=== PATIENT | female | born 2005 | race Caucasian/White ===

== ENCOUNTER 2023-12-30 17:38 | Emergency (ER) | payer BC, SELFPAY ==
--- NOTE | ~2023-12-30 | CT_ITS ---
CT abdomen pelvis w con Ordering provider: Sherrie Cope PA-C History: 18 years Female with . R sided abd pain . Comparison: None. Technique: CT abdomen and pelvis with IV and without oral contrast. Radiation reduction technique uti lized. DLP is 249.25 mGy. 100 mL Omnipaque 350 was given IV. Findings: VISUALIZED LOWER CHEST: Minimal pleural thickening in the right pleura posteriorly. UPPER ABDOMINAL ORGANS: Liver: Normal. Gallbladder: Contracted. Spleen: Normal. Stomach/duodenum: Normal. Pancreas: Normal. Adrenals: Normal. Kidneys: Normal. PELVIC ORGANS: The urinary bladder is underfilled. Uterus: Normal. Left ovarian cyst is seen measuri ng 3.3 cm. BOWEL AND MESENTERY: Colon: No diverticulosis. The appendix measures 1 cm with no definite thickening of the wall or surro unding fat stranding. The appendix is seen in the subhepatic area appendicitis cannot be excluded. Small Bowel: Fluid seen in the small bowel distally which may indicate diarrhea or enteritis. Clinica l evaluation advised. Otherwise, Normal. No obstruction. Peritoneum/mesentery: No free air or free fluid. No mesenteric lymphadenopathy. RETROPERITONEUM: No atheromatous disease. No retroperitoneal lymphadenopathy. MUSCULOSKELETAL: Superficial soft tissues: The superficial soft tissues are normal. Bones: Normal. IMPRESSION: 1. Fluid in the distal bowel which may indicate enteritis versus an area. Clinical correlation advis ed. 2. Enlarged caliber of the appendix with no surrounding inflammatory changes or wall thickening. Air is also seen in the appendix. Appendicitis cannot be excluded or confirmed. Clinical correlation and follow-up advised. 3. Left ovarian cyst. Reviewed, dictated and finalized at location A. IMPRESSION: 1. Fluid in the distal bowel which may indicate enteritis versus an area. Clin ical correlation advised. 2. Enlarged caliber of the appendix with no surrounding inflammatory changes o r wall thickening. Air is also seen in the appendix. Appendicitis cannot be exc luded or confirmed. Clinical correlation and follow-up advised. 3. Left ovarian cyst.
--- NOTE | ~2023-12-30 | US_ITS ---
US pelvic complete Ordering provider: Sherrie Cope PA-C History: . R sided pelvic pain . Comparison: None. Technique: Transabdominal and endovaginal ultrasound of the pelvis (Doppler ultrasound interrogation techniques used as needed for this exam.) FINDINGS: CERVIX: Normal. UTERUS: Measures 5.7x 2.8x 5.2 cm in length which is within normal limits and is anteverted. No myom etrial masses. ENDOMETRIUM: Normal in thickness measuring 5.7 mm. No endometrial masses, cysts or fluid. CUL DE SAC: No free fluid. RIGHT OVARY: Normal in size measuring 3.9x 1.8x 2.1 centimeters. Normal echotexture. Doppler vascular flow present. LEFT OVARY: Normal in size measuring 3x 2.1x 1.9 cm. Normal echotexture. Doppler vascular flow presen t. ADNEXA: Normal. No mass. IMPRESSION: normal pelvic ultrasound. Reviewed, dictated and finalized at location A. IMPRESSION: normal pelvic ultrasound.
[2023-12-30 17:44] VITALS: BP 107/66; PULSE 87; RESP 14; TEMP 36.4; O2SAT 100
--- NOTE | 2023-12-30 18:12 | ED.GENADULT ---
HPI - General Adult General Chief complaint: Abdominal Pain <Jasmin Chavarria October, [employer]INTER MAINTENANCE - Last Filed: 12/30/23 18:15> Stated complaint: abd pain <Jasmin Chavarria October, PAINTER MAINTENANCE - Last Filed: 12/30/23 18:15> Time Seen by Provider: 12/30/23 18:12 <Jasmin Chavarria October, PAINTER MAINTENANCE - Last Filed: 12/30/23 18:15> Focused HPI: Madhavi Santos is a 18 y/o female who presents with complaints of constant abdominal pain all over and then when she is excersizing it makes her pain worse to a stabbing pain to the right upper quadrant - pain started 5 days ago as intermittent and now the pain is constant Pain is at a 2/3 constant and the sharp waves is at an 8/ 10 Last BM was today Denies changes with urine GENERAL: Well-appearing, well-nourished, and in no acute distress. HEAD: Normocephalic, atraumatic. CHEST: Clear to auscultation. ?No respiratory distress. HEART: Regular rate and rhythm.? NEURO: ?Alert and oriented x3. Patient screened in triage and initial orders placed.? ?Additional care and disposition to be based upon?diagnostic testing and treatment. <Jasmin Chavarria October, [employer]INTER MAINTENANCE - Last Filed: 12/30/23 18:15> Focused HPI: Madhavi Santos is a 18 y/o female who presents with complaints of constant abdominal pain all over and then when she is excersizing it makes her pain worse to a stabbing pain to the right upper quadrant - pain started 5 days ago as intermittent and now the pain is constant Pain is at a 2/3 constant and the sharp waves is at an 8/ 10 Last BM was today Denies changes with urine GENERAL: Well-appearing, well-nourished, and in no acute distress. HEAD: Normocephalic, atraumatic. CHEST: Clear to auscultation. ?No respiratory distress. HEART: Regular rate and rhythm.? NEURO: ?Alert and oriented x3. Patient screened in triage and initial orders placed.? ?Additional care and disposition to be based upon?diagnostic testing and treatment. <Sherrie Cope PA-C - Last Filed: 12/31/23 00:58> Source: patient <Sherrie Cope PA-C - Last Filed: 12/31/23 00:58> Mode of arrival: ambulatory <CLAUDINE Maguire Last Filed: 12/31/23 00:58> Limitations: no limitations <CLAUDINE Maguire Last Filed: 12/31/23 00:58> History of Present Illness HPI narrative: agree w/ above HPI. No previous hx of similar pain. <Sherrie Cope PA-C - Last Filed: 12/31/23 00:58> Related Data Allergies/adverse reactions: Allergies Allergy/AdvReac Type Severity Reaction Status Date / Time No Known Allergies Allergy Unverified 05/07/11 18:40 <Jasmin Fields APRN - Last Filed: 12/30/23 18:15> Review of Systems Review of Systems: CONSTITUTIONAL: Denies fever, chills, or sweats. GASTROINTESTINAL: See HPI. GENITOURINARY: Denies dysuria or hematuria. MUSCULOSKELETAL: Denies back pain, extremity pain, myalgia. <Sherrie Cope PA-C - Last Filed: 12/31/23 00:58> All systems reviewed & are unremarkable except as noted in HPI and below <Sherrie Cope PA-C - Last Filed: 12/31/23 00:58> Exam Narrative: GENERAL: Well appearing, well-nourished, non-toxic, in no acute distress. HEAD: Normocephalic, atraumatic. RESPIRATORY: Airway patent, respirations nonlabored. Clear to auscultation bilaterally, no rales, rhonchi, wheezing. CARDIOVASCULAR: Regular rate and rhythm without murmurs, rubs, or gallops. ABDOMINAL: Soft, Diffuse tenderness to palpation throughout abdomen, more focal tenderness in right mid and upper abdomen, no rebound, nondistended. Normoactive BS. MUSCULOSKELETAL: Moves all extremities. No gross deformities. SKIN: Warm, dry, normal color. NEURO: A&O X3. Speech clear. Cranial nerves II-XII grossly intact. Steady gait. No ataxic movements. PSYCHIATRIC: Appropriate mood and affect. Normal interaction. <Sherrie Cope PA-C - Last Filed: 12/31/23 00:58> Course Vital Signs Vital signs: Vital Signs Temperature 97.6 F 12/30/23 17:44 Pulse Rate
[2023-12-30 19:24] VITALS: BP 105/67; PULSE 82; RESP 16; O2SAT 100
[2023-12-30] MEDS: KETOROLAC 30 MG/ML VIAL (*BKC) IV PUSH (19:29)
[2023-12-30 19:34] LABS: Basophils Percent Auto 0.4 % (0.2-1.2); Eosinophils Absolute Auto 0.1 K/mm3 (0-0.3); Eosinophils Percent Auto 0.6 % (0-4.4); Hemoglobin 10.6 g/dL (12.0-15.0); Immature Granulocyte Absolute 0.04 K/mm3 (0.00-0.031); Immature Granulocyte Percent A 0.4 % (0-0.5); Lymphocytes Percent Auto 13.3 % (18.3-44.2); Mean Corpuscular HGB Conc 33.1 g/dl (32-36); Mean Corpuscular Hemoglobin 28.8 pg (26-34); Mean Platelet Volume 9.6 fl (7.4-10.4); Monocytes Absolute Auto 0.9 K/mm3 (0.1-0.6); Monocytes Percent Auto 9.1 % (2.6-8.5); Neutrophils Absolute Auto 7.5 K/mm3 (1.3-6.7); Neutrophils Percent Auto 76.2 % (45.5-73.1); Platelet Count Result 389 k/mm3 (150-375); Red Blood Count 3.68 M/mm3 (4.2-5.4); Red Cell Distribution Width 12.8 % (11.5-14.5); White Blood Count 9.8 K/mm3 (4.5-10.0)
[2023-12-30 19:44] LABS: Alanine Aminotransferase 12 U/L (6-35); Albumin Level 4.5 g/dL (3.5-5.1); Alkaline Phosphatase 61 U/L (38-126); Anion Gap 9 mmol/L (4-12); Aspartate Amino Transferase 21 U/L (14-36); Bilirubin,Total 0.4 mg/dL (0.2-1.3); Blood Urea Nitrogen 15 mg/dL (7-17); Calcium 9.3 mg/dL (8.4-10.2); Carbon Dioxide 28 mmol/L (22-30); Chloride 102 mmol/L (98-107); Estimated CRCL calculation 88 ml/min; Estimated Glomerular Filt Rate > 60; Glucose 93 mg/dL (65-110); Lipase 74 U/L (23-300); Potassium 3.7 mmol/L (3.4-5.0); Sodium 139 mmol/L (137-145)
[2023-12-30 20:52] LABS: Appearance Urine Clear (Clear); Bacteria Urine None Seen /hpf; Bilirubin Urine Negative (Negative); Blood Urine Trace (Negative); Color Urine Yellow (Yellow); Glucose Urine UA Negative (Negative); Ketones Urine Negative (Negative); Leukocyte Esterase Ur Trace LEU/UL (Negative); Nitrate Urine Negative (Negative); Non Pathogenic Casts 0-2; Protein Urine Trace mg/dL (Negative); RBC Urine 0-2 /hpf (0-2); Specific Grav Ur 1.024 (1.001-1.035); Squamous Epithelial Cell Urine None Seen /hpf (Few); Urobilinogen Urine 0.2 mg/dL (<2.0)
[2023-12-30 20:54] LABS: Add Urine Microscopic? YES
[2023-12-30 23:27] VITALS: BP 104/71; PULSE 58; RESP 15; TEMP 36.6; O2SAT 99
== END 2023-12-30 23:35 | disposition home or self-care (01) ==
PROVIDERS: Nurse Practitioner Family; Emergency Provider Physician Assistant
DX: N39.0 Urinary tract infection, site not specified (principal); K52.9 Noninfective gastroenteritis and colitis, unspecified
CPT/HCPCS: 36415; 74177; 76856; 80053; 81001; 81025; 83690; 85025; 87086; 96374; 99284; J1885; Q9967

== ENCOUNTER 2024-01-14 10:51 | Emergency (ER) | payer BC, SELFPAY ==
--- NOTE | ~2024-01-14 | XR_ITS ---
EXAMINATION: XR chest 2V 01/14/2024 14:15 INDICATION: Right shoulder pain PROCEDURE: 2 view chest COMPARISON: No prior studies for comparison. FINDINGS: There is right basilar atelectasis. No focal pneumonia or edema. The cardiomediastinal silh ouette is within normal limits. There are no pleural effusions. There is no pneumothorax suspected. IMPRESSION: 1: Right basilar atelectasis. Reviewed, dictated and finalized at location B.
--- NOTE | ~2024-01-14 | CT_ITS ---
CTA chest PE protocol Ordering provider: [facility] History: 18 years Female with . Pulmonary embolism . Comparison: None. Technique: CT angiogram chest was performed following timed intravenous injection of contrast. Thin s lice axial images and reformatted coronal images were obtained. Three dimensional reformatted images of the chest were also obtained using a [employer] workstation. . Automated exposure control and iterati ve reconstruction technique were employed. The dose-length product was 187.69 mGy-cm. 100 MLO Omnipaq ue 350 was given IV. Findings: PULMONARY ARTERIES: No pulmonary embolus. VISUALIZED THORACIC INLET: Normal. MEDIASTINUM: Aorta/coronary arteries: The thoracic aorta is normal. Heart/other: The heart is not enlarged. Lymph nodes: No mediastinal or hilar adenopathy. LUNGS: No pulmonary nodules or masses. No infiltrates or effusions. No pneumothorax. VISUALIZED UPPER ABDOMEN: the visualized upper abdomen is normal. MUSCULOSKELETAL: Soft tissues: The superficial soft tissues are normal. Bones: Normal spine. IMPRESSION: 1. No pulmonary embolism 2. No acute cardiopulmonary pathology. Reviewed, dictated and finalized at location A.
--- NOTE | ~2024-01-14 | CT_ITS ---
EXAMINATION: CT abdomen pelvis w con DATE: 01/14/2024 12:27 INDICATION: Right-sided abdominal pain. TECHNIQUE: Computed tomography (CT) of the abdomen and pelvis was performed with 100 mL Omnipaque-350 intravenous contrast. Automated exposure control and iterative reconstruction technique were employe d. The dose-length product was 297.96 mGy-cm. COMPARISON: 12/30/2023 FINDINGS: Lung bases are clear. Heart size is normal. No pericardial or pleural effusion. Liver, gallbladder sp maximiilano, pancreas, bilateral adrenal glands and kidneys are normal. Bowels including the appendix are no rmal. Decompressed bladder is normal. There is a small amount of fluid in the pelvis with mild surrou nding inflammatory changes including stranding in the mesenteric fat in the deep pelvis and subtle th in peritoneal enhancement along the fluid. 2.4 cm right adnexal cyst. Anteverted uterus appears alexia l however the bilateral fallopian tubes appear thickened and enhancing but without dilated hydrosalpi nges. Constellation of findings is suspicious for pelvic inflammatory disease. No pathologically enl arged abdominal or pelvic lymphadenopathy. Bones are unremarkable. IMPRESSION: 1. Thickened enhancing bilateral fallopian tubes without hydrosalpinges and with inflammatory changes in the pelvis including small amounts of likely reactive free fluid, mild peritonitis and fat strand ing suspicious for pelvic inflammatory disease. Reviewed, dictated and finalized at location A. IMPRESSION: 1. Thickened enhancing bilateral fallopian tubes without hydrosalpinges and wit h inflammatory changes in the pelvis including small amounts of likely reactive free fluid, mild peritonitis and fat stranding suspicious for pelvic inflammat ory disease.
[2024-01-14 11:02] VITALS: BP 122/79; PULSE 70; RESP 14; TEMP 36.6; O2SAT 100
[2024-01-14 11:47] LABS: Basophils Percent Auto 0.3 % (0.2-1.2); Eosinophils Absolute Auto 0.1 K/mm3 (0-0.3); Eosinophils Percent Auto 1.4 % (0-4.4); Hematocrit 35.9 % (37.0-47.0); Hemoglobin 11.6 g/dL (12.0-15.0); Immature Granulocyte Absolute 0.02 K/mm3 (0.00-0.031); Immature Granulocyte Percent A 0.3 % (0-0.5); Lymphocytes Percent Auto 17.1 % (18.3-44.2); Mean Corpuscular HGB Conc 32.3 g/dl (32-36); Mean Corpuscular Hemoglobin 28.9 pg (26-34); Mean Corpuscular Volume 89.3 fl (80-100); Mean Platelet Volume 9.8 fl (7.4-10.4); Monocytes Absolute Auto 0.9 K/mm3 (0.1-0.6); Monocytes Percent Auto 13.4 % (2.6-8.5); Neutrophils Absolute Auto 4.3 K/mm3 (1.3-6.7); Neutrophils Percent Auto 67.5 % (45.5-73.1); Platelet Count Result 330 k/mm3 (150-375); Red Blood Count 4.02 M/mm3 (4.2-5.4); Red Cell Distribution Width 13.3 % (11.5-14.5); White Blood Count 6.4 K/mm3 (4.5-10.0)
[2024-01-14 11:59] LABS: Alanine Aminotransferase 12 U/L (6-35); Albumin Level 4.5 g/dL (3.5-5.1); Alkaline Phosphatase 58 U/L (38-126); Anion Gap 15 mmol/L (4-12); Aspartate Amino Transferase 23 U/L (14-36); Bilirubin,Total 0.2 mg/dL (0.2-1.3); Blood Urea Nitrogen 8 mg/dL (7-17); Calcium 9.5 mg/dL (8.4-10.2); Carbon Dioxide 23 mmol/L (22-30); Chloride 102 mmol/L (98-107); Estimated CRCL calculation 79 ml/min; Estimated Glomerular Filt Rate > 60; Glucose 111 mg/dL (65-110); Lipase 86 U/L (23-300); Sodium 140 mmol/L (137-145)
[2024-01-14 12:03] LABS: Appearance Urine Cloudy (Clear); Bacteria Urine 3+ /hpf; Bilirubin Urine Negative (Negative); Blood Urine 2+ (Negative); Color Urine Yellow (Yellow); Glucose Urine UA Negative (Negative); Ketones Urine Trace mg/dL (Negative); Leukocyte Esterase Ur 1+ LEU/UL (Negative); Mucus Urine Present /lpf; Need Manual Microscopic Reviewed; Nitrate Urine Negative (Negative); Non Pathogenic Casts 0-2; Protein Urine 1+ mg/dL (Negative); Specific Grav Ur 1.035 (1.001-1.035); Squamous Epithelial Cell Urine Moderate /hpf (Few); WBC Urine 21-50 /hpf (0-3); pH Urine 5.5 (5.0-9.0)
[2024-01-14 12:06] LABS: Add Urine Microscopic? YES
--- NOTE | 2024-01-14 12:07 | ED.ABDPAIN ---
HPI - Abdominal Pain General Chief Complaint: Abdominal Pain Stated Complaint: abdominal pain Time Seen by Provider: 01/14/24 11:59 Source: patient Limitations: no limitations History of Present Illness HPI narrative: 18 years old white female came to the emergency room by private car complaining of sharp stabbing pain of the right shoulder, intermittent, got worse yesterday, been going for the last 2 weeks associated with abdominal pain. The above symptoms get worse with movement, maybe better at rest. Patient been taking Tylenol, ibuprofen without any improvement. Patient denies any vaginal bleeding or discharge or any urinary symptoms. 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 Related Data Allergies Allergy/AdvReac Type Severity Reaction Status Date / Time No Known Allergies Allergy Verified 01/14/24 10:51 Review of Systems Review of Systems: All systems reviewed & are unremarkable except as noted in HPI and below Exam Narrative: General appearance: Well-developed, well-nourished Skin: Normal color Head: Normocephalic, nontraumatic Eyes: Clear conjunctiva ENT: Oropharynx normal, ears normal, nose normal Neck: Supple, nontender Chest and respiratory: Airway patent, no respiratory distress, no accessory muscle use Heart: Regular rate/rhythm Abdomen: Soft, diffuse abdominal pain mainly at the lower part, bilaterally, no organomegaly, quiet bowel sounds Vascular: Normal peripheral pulses, normal capillary refill. Musculoskeletal: Normal range of motion, nontender back Neurologic: Alert and oriented ?3, COMPUTER ART INSTRUCTOR is normal as tested, no gross motor deficit : External Female Exam: normal external appearance Speculum Exam - Vagina: normal appearance of the vagina and normal vaginal discharge (Yellowish, greenish vaginal discharge,) Speculum Exam - Cervix: Cervical os closed (Slightly erythematous, tender with manipulation) Bimanual Exam- Adnexa, other: no masses Course Vital Signs Vital signs: Vital Signs Temperature 36.6 C 01/14/24 11:02 Pulse Rate 70 01/14/24 11:02 Respiratory Rate 14 01/14/24 11:02 Blood Pressure 122/79 01/14/24 11:02 Pulse Oximetry 100 01/14/24 11:02 Oxygen Delivery Room Air 01/14/24 11:02 Temperature 36.4 C 01/14/24 13:23 Pulse Rate 60 01/14/24 17:29 Respiratory Rate 18 07/18/24 17:29 Blood Pressure 104/53 L 01/14/24 17:29 Pulse Oximetry 100 01/14/24 17:29 Oxygen Delivery Room Air 01/14/24 11:02 MDM - Abdominal Pain MDM Narrative Medical decision making narrative: Differential diagnosis include urinary tract infection, appendicitis, ovarian cyst, PID, constipation, colitis Blood workup today showed normal white count, elevated D-dimer 3.75, could be secondary to PE, CT chest rule out pulmonary embolism showed no PE, urinalysis showed evidence of infection, pelvic exam showed quite a bit of whitish chong secretion erythematous cervix consistent with cervicitis/PID. CT abdomen and pelvis with IV contrast showed finding consistent with PID. In the ED patient received 1 g of ceftriaxone IV prior to discharge, discharged on doxycycline, metronidazole and Macrobid. Patient is asymptomatic at the time of discharge. Differential Diagnosis Differential diagnosis: Likely other (As above) Lab Data Attestation: I reviewed the patient's lab results. 01/14/24 11:36 01/14/24 11:36 Labs: Lab Results 01/14/24 01/14/24 Range/Units 11:36 16:55 WBC 6.4 (4.5-10.0) K/mm3 RBC 4.02 L (4.2-5.4) M/mm3 Hgb 11.6 L (12.0-15.0) g/dL Hct 35.9 L (37.0-47.0) % MCV 89.3 (80-100) fl MCH 28.9 (26-34
[2024-01-14] MEDS: SODIUM CHLORIDE 0.9% IV 1,000 ML 999 ML IV CONT (12:15)
[2024-01-14] MEDS: HYDROmorphone HCL INJ (*CRX) 1 MG/ML SYR 0.5 MG IV PUSH (12:15)
[2024-01-14] MEDS: ONDANSETRON INJ 4 MG/2 ML VIAL IV PUSH (12:16)
--- NOTE | 2024-01-14 12:20 | PC.NURSE ---
pt to CT at this time
[2024-01-14 13:23] VITALS: BP 112/67; PULSE 60; RESP 15; TEMP 36.4; O2SAT 100
[2024-01-14 14:45] LABS: D Dimer 3.75 ug/mL (<0.48)
[2024-01-14 17:29] VITALS: BP 104/53; PULSE 60; RESP 18; O2SAT 100
[2024-01-14 18:06] LABS: Trichomonas Vag PCR NOT DETECTED (NOT DETECTE)
[2024-01-14 18:30] LABS: Chlamydia trachomatis DETECTED (NOT DETECTE); Neisseria gonorrhoeae PCR NOT DETECTED (NOT DETECTE)
--- NOTE | 2024-01-23 10:03 | PC.NURSE ---
LATE ENTRY This note is being entered to document information to the patient's record. The following information was omitted on [01/14/24], by [Gladis Cody RN]. ceft was stopped at 1724 on 01/14/24
== END 2024-01-14 17:30 | disposition home or self-care (01) ==
PROVIDERS: Student in an Organized Health Care Education/Training Program; Emergency Provider Emergency Medicine
DX: N73.0 Acute parametritis and pelvic cellulitis (principal); N39.0 Urinary tract infection, site not specified
CPT/HCPCS: 36415; 71046; 71275; 74177; 80053; 81001; 81025; 83690; 85025; 85380; 87086; 87491; 87591; 87661; 96361; 96365; 96375; 99284; J0696; J1170; J2405; J7030; Q9967